=== PATIENT | male | born 1990 | race Caucasian/White ===

== ENCOUNTER 2023-07-26 08:24 | Emergency (ER) | payer OTHER, SELFPAY ==
[2023-07-26] VITALS (26 sets, daily range): BP systolic 118–134; BP diastolic 70–82; PULSE 65–86; RESP 11–21; TEMP 36.7; O2SAT 97–100
--- NOTE | ~2023-07-26 | XR_ITS ---
EXAMINATION: XR chest 1V portable DATE: 07/26/2023 09:33 INDICATION: Shortness of breath. Chest pain. TECHNIQUE: A single frontal view of the chest was obtained on 2 radiographs. COMPARISON: None. FINDINGS: There is no pneumonia, pleural effusion, or pneumothorax. The heart size is normal. IMPRESSION: 1. No acute cardiopulmonary disease. Reviewed, dictated and finalized at location E.
--- NOTE | 2023-07-26 08:35 | ECG_ITS ---
Test Date: 2023-07-26 08:40:39 Measurements Intervals [place] Rate: 73 P: 48 NE: 154 QRS: 43 QRSD: 99 T: 2 QT: 383 QTc: 423 Interpretive Statements SINUS RHYTHM NONSPECIFIC T-WAVE ABNORMALITY No previous ECG available for comparison Electronically Signed On 07-27-2023 14:22:55 CDT by Riki Gutierrez M.D.
--- NOTE | 2023-07-26 08:47 | ED.CHESTPAIN ---
HPI - Chest Pain General Chief Complaint: Chest Pain Stated Complaint: sob, hands cramping Time Seen by Provider: 07/26/23 08:29 History of Present Illness HPI narrative: [age] old male presenting emergency department for evaluation for an episode of left-sided chest pain rapid breathing and tingling of his hands. Patient states he was working outside yesterday but does feel he was properly rehydrated did have electrolytes. Patient states he has been decreasing his caffeine intake. Denies any illicit drug use. Patient denies any prior history of anxiety, cardiac history. Patient states the symptoms lasted approximately about 10 minutes and resolved prior to arrival. Upon arrival emergency department patient denies any hand tingling chest pain shortness of breath or anxiety. Patient is resting comfortably at time of evaluation Related Data Allergies Allergy/AdvReac Type Severity Reaction Status Date / Time cefaclor [From [facility]] Allergy Hives Verified 07/26/23 09:05 Review of Systems Review of Systems: All systems reviewed & are unremarkable except as noted in HPI and below Exam Narrative: APPEARANCE: Well appearing, no pain, no distress, well-nourished. HEAD: normocephalic, atraumatic. EYES: PERRLA/EOMI, conjunctivae clear. NOSE: Normal no drainage EARS:TMS clear with good light reflex. THROAT: Pharynx clear, no exudate. NECK: Supple. No adenopathy, no masses. RESPIRATORY: Airway patent, respirations nonlabored. Clear to auscultation bilaterally, no rales, rhonchi, wheezing. CARDIOVASCULAR: Regular rate and rhythm without murmurs rubs or gallops. ABDOMINAL: Soft, nontender, nondistended, normal bowel sounds MUSCULOSKELETAL: Moves all extremities. Strength/ROM intact, No edema, No calf tenderness. NEURO: Alert. Cranial nerves II through XII intact. Good gait. Good coordination SKIN: Warm, dry. Normal Color Course Vital Signs Vital signs: Vital Signs Temperature 98.1 F 07/26/23 08:28 Pulse Rate 70 07/26/23 08:28 Respiratory Rate 12 07/26/23 08:28 Blood Pressure 126/81 07/26/23 08:28 Pulse Oximetry 100 07/26/23 08:28 Oxygen Delivery Room Air 07/26/23 08:28 Temperature 98.1 F 07/26/23 08:28 Pulse Rate 86 07/26/23 13:11 Respiratory Rate 17 07/26/23 13:11 Blood Pressure 129/78 07/26/23 13:11 Pulse Oximetry 98 07/26/23 13:11 Oxygen Delivery Room Air 07/26/23 09:02 MDM - Chest Pain MDM Narrative Medical decision making narrative: [age] old male presenting emergency department for evaluation for short lasting chest pain. Patient is afebrile with no leukocytosis and a stable hemoglobin. Patient has no abnormalities on his CMP, patient had negative serial troponins. Patient was negative for influenza RSV and for COVID. Chest x-ray shows no acute cardiopulmonary abnormality. EKG showed normal sinus rhythm. Patient is PERC negative. Patient denies any current chest pain. Symptoms may have been secondary to a panic attack. Low concern for current ACS. Patient was also potentially dehydrated from yesterday this may be contributing. Patient's creatinine is normal today. Differential Diagnosis Differential diagnosis: Likely other (Pneumonia, pneumothorax, pleurisy, costochondritis, ACS, pulmonary embolism) Lab Data 07/26/23 09:08 07/26/23 09:08 Labs: Lab Results 07/26/23 07/26/23 07/26/23 Range/Units 08:39 09:08 12:13 WBC 7.9 (4.5-10.0) K/mm3 RBC 4.78 (4.6-6.20) M/mm3 Hgb 15.5 (14.0-18.0) g/dL Hct 44.2 (42.0-52.0) % MCV 92.5 (80-100) fl MCH 32.4 (26-34) pg MCHC 35.1 (32-36) g/dl RDW 11.9 (11.5-14.5) % Plt Count 229 (150-375) k/mm3 MPV 8.6 (7.4-10.4) fl Immature Gran % (Auto) 0.5 (0-0.5) % Neut % (Auto) 64.1 (45.5-73.1) % Lymph % (Auto) 18.1 L (18.3-44.2) % [place] % (Auto) 12.7 H (2.6-8.5) % Eos % (Auto) 4.1 (0-4.4) % Baso % (Auto) 0.5 (0.2-1.2
[2023-07-26] MEDS: SODIUM CHLORIDE 0.9% IV 1,000 ML 999 ML IV CONT (09:08)
[2023-07-26 09:13] LABS: Basophils Percent Auto 0.5 % (0.2-1.2); Eosinophils Absolute Auto 0.3 K/mm3 (0-0.3); Eosinophils Percent Auto 4.1 % (0-4.4); Hematocrit 44.2 % (42.0-52.0); Hemoglobin 15.5 g/dL (14.0-18.0); Immature Granulocyte Absolute 0.04 K/mm3 (0.00-0.031); Immature Granulocyte Percent A 0.5 % (0-0.5); Lymphocytes Absolute Auto 1.43 K/mm3 (0.9-3.2); Lymphocytes Percent Auto 18.1 % (18.3-44.2); Mean Corpuscular HGB Conc 35.1 g/dl (32-36); Mean Corpuscular Hemoglobin 32.4 pg (26-34); Mean Corpuscular Volume 92.5 fl (80-100); Mean Platelet Volume 8.6 fl (7.4-10.4); Monocytes Percent Auto 12.7 % (2.6-8.5); Neutrophils Absolute Auto 5.1 K/mm3 (1.3-6.7); Neutrophils Percent Auto 64.1 % (45.5-73.1); Platelet Count Result 229 k/mm3 (150-375); Red Blood Count 4.78 M/mm3 (4.6-6.20); Red Cell Distribution Width 11.9 % (11.5-14.5); White Blood Count 7.9 K/mm3 (4.5-10.0)
[2023-07-26 09:24] LABS: Alanine Aminotransferase 19 U/L (6-50); Albumin Level 4.5 g/dL (3.5-5.1); Alkaline Phosphatase 59 U/L (38-126); Anion Gap 9 mmol/L (4-12); Aspartate Amino Transferase 25 U/L (17-59); Blood Urea Nitrogen 14 mg/dL (9-20); Carbon Dioxide 24 mmol/L (22-30); Chloride 105 mmol/L (98-107); Estimated CRCL calculation 117 ml/min; Estimated Glomerular Filt Rate > 60; Glucose 100 mg/dL (65-110); Magnesium 2.1 mg/dL (1.6-2.3); Potassium 3.9 mmol/L (3.4-5.0); Sodium 138 mmol/L (137-145)
[2023-07-26 09:30] LABS: Influenza A QL RT-PCR Negative (Negative); Influenza B QL RT-PCR Negative (Negative); RSV RNA, RT-PCR Negative (Negative); SARS-CoV-2 RNA PCR Negative (Negative)
[2023-07-26 09:36] LABS: Troponin I < 0.012 ng/mL (0.000-0.034)
[2023-07-26 12:41] LABS: Troponin I < 0.012 ng/mL (0.000-0.034)
== END 2023-07-26 13:12 | disposition home or self-care (01) ==
PROVIDERS: Emergency Provider Emergency Medicine; PCP Internal Medicine
DX: R07.89 Other chest pain (principal); Z20.822 Contact with and (suspected) exposure to COVID-19
CPT/HCPCS: 36415; 71045; 80053; 83735; 84484; 85025; 87637; 93005; 96360; 99284; J7030